=== PATIENT | female | born 1960 | race Caucasian/White ===

== ENCOUNTER 2017-08-11 16:57 | Emergency (ER) | payer OTHER ==
[~2017-08-11] VITALS: Ht 172.7 cm; Wt 88.4 kg
[~2017-08-11 16:57] MED LIST: AMBIEN10 M1 PO; CELEBREX100 MG PO; CIPRO500 MG PO; CLONIDINE HCL0.2 MG PO; FLOMAX0.4 M1 PO; FLOMAX0.4 MG PO; HYDRODIURIL,ORE50 MG PO; MICRO-K,K-DUR,10 ME1 PO; NEURONTIN600 MG PO; PERCOCET 5/31 TABLET PO; PROZAC40 MG PO; VICODIN,LORT1 TABLET PO; ZOFRAN ODT4 MG PO
[2017-08-11 18:19] LABS: HEMATOCRIT 42.6 % (36.0-46.0); HEMOGLOBIN 14.6 G/DL (11.9-15.5); MCH 29.9 PG (29.0-34.0); MCHC 34.3 G/DL (30.0-36.0); MCV 87.1 FL (83-99); PLATELET COUNT 307 K/uL (156-360); RBC DIS.WIDTH-CV 13.2 % (11.8-14.6); RBC DIS.WIDTH-SD 41.5 % (39-53); RED BLOOD COUNT 4.89 M/uL (3.80-5.20); WHITE BLOOD COUNT 6.7 K/uL (4.1-10.2)
[2017-08-11 18:46] LABS: CHLORIDE 99 MEQ/L (99-109); CREATININE 0.6 MG/DL (0.6-1.3); GFR ESTIMATE (CALCULATED) > 59 mL/min/; GLUCOSE 95 mg/dL (70-99); POTASSIUM 3.2 MEQ/L (3.7-5.4); SODIUM 139 MEQ/L (136-147); UREA NITROGEN (BUN) 11 mg/dL (9-23)
[2017-08-11 19:31] LABS: APPEARANCE CLEAR ((CLEAR)); BILIRUBIN NEGATIVE; BLOOD NEGATIVE; COLOR YELLOW ((YELLOW)); GLUCOSE (STRIP) NEGATIVE; KETONES NEGATIVE; LEUKOCYTES NEGATIVE; NITRITE NEGATIVE; PROTEIN (STRIP) NEGATIVE; SPECIFIC GRAVITY 1.012 (1.000-1.030); UCUL ADDED? NO
[2017-08-11] MEDS ORDERED: FLOMAX0.4 MG PO (19:57)
[2017-08-11] MEDS ORDERED: MOTRIN600 MG PO (19:57)
[2017-08-11] MEDS ORDERED: PERCOCET 5/31 TABLET PO (19:57)
[2017-08-11] MEDS ORDERED: ZOFRAN ODT4 MG PO (19:57)
[2017-08-11 20:28] VITALS: BP 118/48
== END 2017-08-11 20:29 | disposition home or self-care (01) ==
LOC: EME 16:57
DX: N20.0 Calculus of kidney (principal); E87.6 Hypokalemia; I10 Essential (primary) hypertension; F41.9 Anxiety disorder, unspecified; F32.9 Major depressive disorder, single episode, unspecified; Z87.442 Personal history of urinary calculi; Z90.49 Acquired absence of other specified parts of digestive tract; Z88.5 Allergy status to narcotic agent; Z88.2 Allergy status to sulfonamides
CPT/HCPCS: 74018; 80048; 81003; 85027; 99281; 99284

== ENCOUNTER 2017-08-18 09:35 | Day surgery (SDC) | payer OTHER ==
[~2017-08-18] VITALS: Ht 172.7 cm; Wt 83.9 kg
[~2017-08-18 09:35] MED LIST changes: +CYMBALTA30 MG PO; +MOTRIN600 MG PO; +TYLENOL EXTRA500 MG PO; +ZOFRAN4 MG PO
[2017-08-18 10:09] VITALS: BP 138/86
[2017-08-18 14:13] VITALS: BP 119/57
[2017-08-18 14:47] VITALS: BP 111/58
== END 2017-08-18 14:56 | disposition home or self-care (01) ==
LOC: SDC 09:35
PROVIDERS: Urology
PROC: 0TC78ZZ Extirpation of Matter from Left Ureter, Via Natural or Artificial Opening Endoscopic (ICD-10-PCS; principal; 2017-08-18)
DX: N20.1 Calculus of ureter (principal); I10 Essential (primary) hypertension; Z88.2 Allergy status to sulfonamides; Z84.1 Family history of disorders of kidney and ureter
CPT/HCPCS: 74420; 82365 90; 84132; 87641; 93005; C1769; J0690; J1100; J1170; J1580; J2250; J2405; J3010; J7050; Q0175